=== PATIENT | male | born 1960 | race Caucasian/White ===

== ENCOUNTER 2016-08-27 00:25 | Emergency (ER) | payer OTHER ==
[2016-08-27 01:38] VITALS: BP 136/73; PULSE 75; TEMP 97.5; BMI 25.7
[2016-08-27] MEDS ORDERED: TETRACAINE 0.5% OPHTH SOLN 2 ML BOTTLE ONE (01:47)
[2016-08-27] MEDS ORDERED: ERYTHROMYCIN 0.5% OPHTHALMIC OINTMENT 3.5 GM TUBE OD ONE (01:59)
[2016-08-27] MEDS ORDERED: FLUORESCEIN NA 1 EA STRIP OD ONE (01:59)
--- NOTE | 2016-08-27 01:59 | PDOC ---
[id number] 4d EYE PAIN Time Seen by Provider: 08/27/16 01:40 History Source: Patient - History of Present Illness Initial Comments: 08/27/16 02:15 56 year old male c/o right eye pain s/p foreign body sensation while washing face at 10 pm. denies past medical history. Past History - Past Medical History Allergies/Adverse Reactions: Allergies Allergy/AdvReac Type Severity Reaction Status Date / Time No Known Allergies Allergy Verified 08/27/16 01:38 Home Medications: Ambulatory Orders Erythromycin 0.5% Eye Ointment [Erythromycin 0.5% Eye Ointment -] 1 applic OD TID #1 tube 08/27/16 - Psycho/Social/Smoking Cessation Hx Suicidal Ideation: No Smoking History: Never smoked Have you smoked in the past 12 months: No Information on smoking cessation initiated: No Hx Alcohol Use: No Drug/Substance Use Hx: No Substance Use Type: None Review of Systems - Review of Systems Able to Perform ROS?: Yes HEENTM: Yes: Eye Pain, Tearing. No: Blurred Vision, Recent change in vision, Double Vision *Physical Exam - Vital Signs Last Vital Signs Temp Pulse Resp BP Pulse Ox 97.5 F L 75 20 136/73 100 08/27/16 01:34 08/27/16 01:34 08/27/16 01:34 08/27/16 01:34 08/27/16 01:34 - Physical Exam General Appearance: Yes: Appropriately Dressed HEENT: positive: Other (+ fluorescein uptake to left eye) Respiratory/Chest: positive: Lungs Clear, Normal Breath Sounds Cardiovascular: positive: Regular Rate Gastrointestinal/Abdominal: positive: Normal Bowel Sounds, Soft Extremity: positive: Normal Capillary Refill, Normal Inspection, Normal Range of Motion Integumentary: positive: Normal Color, Dry, Warm Neurologic: positive: Fully Oriented, Alert, Normal Mood/Affect Medical Decision Making - Medical Decision Making A: left corneal abrasion P: erythromycin ophthalmology outpatient consult *DC/Admit/Observation/Transfer Diagnosis at time of Disposition: Corneal abrasion, left Qualifiers: Encounter type: initial encounter Qualified Code(s): S05.02XA - Injury of conjunctiva and corneal abrasion without foreign body, left eye, initial encounter - Discharge Dispostion Disposition: HOME - Prescriptions Prescriptions: Erythromycin 0.5% Eye Ointment [Erythromycin 0.5% Eye Ointment -] 1 applic OD TID #1 tube - Referrals Referrals: Lloyd Pitts [Primary Care Provider] - - Patient Instructions Printed Discharge Instructions: Corneal Abrasion Additional Instructions: apply erythromycin to left eye three times daily. follow up with ophthalmology as soon as possible. Dr. Ruth Ocasio [address] [facility] [phone] - Post Discharge Activity Work/School Note: Back to Work
[2016-08-27] MEDS ORDERED: FLUORESCEIN NA 1 EA STRIP ONE (02:02)
[2016-08-27] MEDS ORDERED: ERYTHROMYCIN 0.5% OPHTHALMIC OINTMENT 3.5 GM TUBE ONE (02:02)
== END 2016-08-27 02:34 | disposition home or self-care (01) ==
LOC: JER 00:25
DX: S05.02XA Injury of conjunctiva and corneal abrasion without foreign body, left eye, initial encounter (principal); X58.XXXA Exposure to other specified factors, initial encounter; Y93.E8 Activity, other personal hygiene; Y92.091 Bathroom in other non-institutional residence as the place of occurrence of the external cause
CPT/HCPCS: 99282-25